=== PATIENT | female | born 1955 | race Caucasian/White ===

== ENCOUNTER 2018-07-22 12:56 | Inpatient (IN) ==
[2018-07-22] MEDS ORDERED: NS 2,000 ML ONE (13:51)
[2018-07-22] MEDS ORDERED: NS 1,000 ML IV ONE ×2 (13:55→16:54)
[2018-07-22 14:21] LABS: BASO# 0.02 X1000 (0.0-0.2); BASO% 0.2 % (0.0-0.8); EOS# 0.23 X1000 (0.0-0.7); EOS% 2.7 % (0.0-10.0); HEMOGLOBIN 8.9 g/dL (12.0-16.0); LYMPH% 26.3 % (20.5-51.1); MCH 26.7 PG (27-31); MCHC 30.7 g/dL (33-37); MCV 87.1 FL (81-99); MONO# 0.41 X1000 (0.11-0.59); MONO% 4.9 % (1.7-9.3); MPV 10.3 FL (7.4-10.4); NEUT# 5.52 X1000 (1.4-6.5); NEUT% 65.9 % (42.2-75.2); PLT 272 X1000 (130-400); RBC 3.33 XMIL (4.2-5.4); RDW 17.6 % (11.5-14.5); WBC 8.38 X1000 (4.8-10.8)
[2018-07-22 14:32] LABS: INR 0.97; PROTIME 13.6 Seconds (11.0-16.0)
[2018-07-22 14:33] LABS: PTT 37.2 Seconds (22.3-41.8)
[2018-07-22 14:49] LABS: AGAP 15; ALB/GLOB RATIO 1.2; ALBUMIN 3.3 g/dL (3.5-5.0); ALKALINE PHOSPHATASE 109 U/L (32-104); BUN 44 mg/dL (8-22); CALCIUM 8.6 mg/dL (8.8-10.2); CHLORIDE 99 mmol/L (98-107); CK PROFILE 1709 U/L (24-173); COSMO 293; CREATININE 1.6 mg/dL (0.5-0.9); ESTIMATED GFR 33; GLUCOSE 145 mg/dL (70-104); GOT 48 U/L (10-30); GPT 36 U/L (10-36); LIPASE 17 U/L (13-60); POTASSIUM 4.7 mmol/L (3.5-5.1); SODIUM 140 mmol/L (136-145); TCO2 26 mmol/L (25-35); TOTAL BILIRUBIN < 0.15 mg/dL (0.20-1.00)
[2018-07-22 15:08] LABS: CK INDEX 6.6 (0.0-2.5)
--- NOTE | 2018-07-22 15:31 | Diag Imaging Result Doc PS360 ---
EXAM : CT HEAD/C-SPINE W/O CONTRAST HISTORY: fall TECHNIQUE: 1. CT head without contrast 2. CT cervical spine without contrast COMPARISON: None. FINDINGS: Head: No parenchymal hemorrhage. No epidural or subdural hematoma. No subarachnoid hemorrhage. No mass identified on this noncontrasted exam. No hydrocephalus. There is mucosal thickening and debris in the left maxillary sinus. No air-fluid levels. No skull fracture.. Cervical spine: There is good alignment to the cervical spine. No precervical soft tissue swelling. No subluxation. No fracture. Moderate degenerative changes in the lower cervical spine. Prominent atherosclerosis. IMPRESSION: Head: No hemorrhage. No injury. Cervical spine: No acute fracture. This exam was performed using automated exposure control, adjustment of mA or kV according to patient size, and/or use of iterative reconstruction technique. Electronically signed by Vick Mora 07/22/2018 3:29 PM
--- NOTE | 2018-07-22 15:36 | Diag Imaging Result Doc PS360 ---
EXAM: CT ABDOMEN/PELVIS W/O CONTRAST HISTORY: abd tenderness TECHNIQUE: CT abdomen and pelvis without contrast COMPARISON: None. FINDINGS: There is a moderate to large hiatal hernia. The gallbladder has been removed. No fluid about the liver or spleen. Unable to rule out hepatic and splenic injury without intravenous contrast. There are scattered renal cysts. No renal stones. No hydronephrosis. No retroperitoneal hematoma. Severe atherosclerosis. Normal pancreas and adrenal glands. Moderate scoliosis with severe degenerative changes. The urinary bladder is low lying. It is quite distended. The uterus has been removed. No pelvic mass. Long-standing bilateral hip arthritis. IMPRESSION: 1.Hiatal hernia 2.Cholecystectomy 3.Severe atherosclerosis 4.Moderate constipation 5.Borderline overly distended urinary bladder 6.Hysterectomy This exam was performed using automated exposure control, adjustment of mA or kV according to patient size, and/or use of iterative reconstruction technique. Electronically signed by Vick Mora 07/22/2018 3:34 PM
--- NOTE | 2018-07-22 15:37 | Diag Imaging Result Doc PS360 ---
EXAM: CHEST-1 VIEW HISTORY: fall TECHNIQUE: Chest single view COMPARISON: 12/25/2017 FINDINGS: The lungs are well expanded. No contusion. No pneumothorax. The heart is not enlarged. The vessels are not distended. There are no infiltrates. No effusion identified. IMPRESSION: No injury. Electronically signed by Vick Mora 07/22/2018 3:35 PM
[2018-07-22 16:04] LABS: URINE SOURCE CATH
[2018-07-22 16:07] LABS: BILIRUBIN URINE NEGATIVE (NEGATIVE); BLOOD URINE NEGATIVE (NEGATIVE); COLOR YELLOW; GLUCOSE URINE NEGATIVE (NEGATIVE); KETONE URINE NEGATIVE (NEGATIVE); LEUKOCYTES URINE NEGATIVE (NEGATIVE); NITRITE URINE NEGATIVE (NEGATIVE); PH URINE 5.5; PROTEIN URINE NEGATIVE (NEGATIVE); SP GRAVITY URINE 1.008; TURBIDITY URINE CLEAR (CLEAR); UROBILINOGEN URINE NORMAL (NORMAL)
[2018-07-22 16:09] LABS: UR EPITHELIAL CELLS <10 /HPF (<10); URINE BACTERIA NEGATIVE /HPF; URINE RBC <10 /HPF (<10); URINE WBC <10 /HPF (<10)
[2018-07-22 16:24] LABS: UR AMPHETAMINES QUAL NONE DETECTED (NONE DETECT); UR BARBITUATES QUAL NONE DETECTED (NONE DETECT); UR BENZODIAZEPIN QUAL PRESUMPTIVE POSITIVE (NONE DETECT); UR CANNABINOIDS QUAL NONE DETECTED (NONE DETECT); UR COCAINE QUAL NONE DETECTED (NONE DETECT); UR METHADONE QUAL NONE DETECTED (NONE DETECT); UR OPIATES QUAL PRESUMPTIVE POSITIVE (NONE DETECT); UR OXYCODONE QUAL PRESUMPTIVE POSITIVE (NONE DETECT); UR PCP QUAL NONE DETECTED (NONE DETECT)
[2018-07-22] MEDS ORDERED: PERCOCET-10 PO ONE (17:02)
[2018-07-22] MEDS ORDERED: XYLOCAINE 1% INJ ONE (18:03)
[2018-07-22] MEDS ORDERED: SODIUM CHLORIDE 0.9% INJ SCH (18:15)
[2018-07-22 18:27] LABS: ALLEN TEST YES; BE 3.6 mmoll (-3.0-3.0); BLOOD TYPE ARTERIAL; HCO3-(ACT) 27.6 mmoll (20.0-26.0); METHB 1.3 % (0.0-1.5); PO2(98.6) 50 mmHg (60-100); SAMPLE BLOOD; SAO2 90.7 % (95.0-100.0); THB 8.2 g/dL (11.5-17.4); pH(98.6) 7.37 (7.35-7.45)
[2018-07-22 18:30] LABS: MODALITY ROOM AIR; O2HB 86.1 % (95.0-99.0); PCO2(98.6) 51 mmHg (35-45)
[2018-07-22 18:35] LABS: UR CREAT RANDOM 62.2 mg/dL (11-20); UR PROT RANDOM 9.7 mg/dL
[2018-07-22] MEDS ORDERED: DIPHTHERIA/TETANUS ADULT IM ONE (19:54)
--- NOTE | 2018-07-22 19:57 | PROVIDER DOCUMENTATION ---
This chart was entered by Hanh Barba Scribe, acting as scribe for Oswaldo Donis MD. HPI-Musculoskeletal Pain/Inj - GENERAL Chief Complaint: Fall Stated Complaint: L-LEG INJURY Time Seen by Provider: 07/22/18 13:30 Source: patient, family - HX OF PRESENT ILLNESS-MUSKULOSKELTAL Nature of Presenting Problem: 63yof with hx of IV drug, diabetes use presents post-syncopal episodes and fall that occurred last night and this morning. The patient presents c/o dizziness, nausea, "pain all over," neck pain and laceration of LLE since this morning. She reports she is unsure is she hit her head. She reports that she has been sick for the past 3-4 days with nausea, vomiting, and cough. She reports she has taken one norco 10. She denies cp, abdominal pain, diarrhea. The patient's husb and is at bedside. Quality of Pain: reports: other ("pain all over") Severity in ED: moderate Onset/Duration: 3 days ago, 4 days ago, this morning, last night Timing: still present, intermittent, constant Modifying Factors: improves with: nothing Similar Symptoms Previously?: No Recently seen or treated by another doctor?: No - FALL INJURY Location of Pain/Injury: reports: neck, lower extremity (laceration of LLE) Pain Radiation: reports: other ("pain all over") Reason for Fall: reports: other (syncopal episodes) Symptoms prior to fall:: reports: none Loss of Consciousness: unsure Injury Associated Symptoms: reports: nausea, vomiting Review of Systems - Adult - REVIEW OF SYSTEMS - ADULT Constitutional: denies: chills, fever Eyes: denies: discharge, dry eyes Ears, Nose, Mouth & Throat: denies: ear discharge, ear pain Cardiovascular: denies: chest pain, palpitations Respiratory: reports: cough. denies: shortness of breath Gastrointestinal: reports: nausea, vomiting. denies: abdominal pain, diarrhea Genitourinary: denies: dysuria, hematuria Musculoskeletal: reports: neck pain, other (laceration of LLE). denies: back pain, muscle aches, muscle weakness Integumentary: reports: no symptoms reported Neurological: reports: dizziness/vertigo, other (dizziness, nausea, "pain all over," neck pain and). denies: headache/migraines Psychiatric: reports: no symptoms reported Endocrine: reports: no symptoms reported Hematologic/Lymphatic: reports: no symptoms reported Allergic/Immunologic: reports: no symptoms reported All Other Systems: Reviewed and Negative Past History - Adult - PAST MEDICAL HISTORY-ADULT Review of Records: reports: Old Records Reviewed, Nursing Assessment Review, Medications Reviewed Major Childhood Illnesses: reports: denies history Cardiovascular: reports: HTN Respiratory: reports: asthma, COPD Musculoskeletal: reports: chronic pain (back) Endocrine/Immune: reports: thyroid disorder - PRIOR SURGERIES/PROCEDURES Surgical/Procedure History: reports: appendectomy, cholecystectomy, hysterectomy - IMMUNIZATION STATUS Childhood Immunizations: See Nurse Assessment Flu Vaccine: See Nurse Assessment - FAMILY HISTORY Family History: reviewed, not pertinent - SOCIAL HISTORY Smoking: cigarettes, less than 1 pack/day Substance Use: denies Living Situation: family Physical Exam-Injury Related - Physical Exam-Injury Related Initial Vital Signs Reviewed: Yes General Appearance: other (pt is somnolent, pt answers some questions when asked, pt is mainly non-verbal) Immobilization?: C-collar, applied in ED. negative: backboard Eyes: PERRL/EOMI, pink conjunctivae Neck: other (unable to assess, pt c/o neck pain). negative: ecchymosis Respiratory: lungs clear, normal breath sounds. negative: rales, wheezing Cardiovascular: regular rate, rhythm, no murmur. negative: bradycardia Extremity: erythema, tenderness (LLE), other (LLE v-shaped laceration 4 in x 1 in). negative: deformity Integumentary: normal color, warm/dry, laceration (LLE v-shaped laceration 4 in x 1 in) Neurologic: other (unable to assess pt is somnolent, pt answers some questions when asked, pt is mainly non-verbal) Psych/Mental Status: other (unable to assess pt is somnolent, pt answers some questions when asked, pt is mainly non-verbal) - Glascow Coma Score Best Eye Response ([place]): (3) open to voice Best Verbal Response ([place]): (4) confused conversation Best Motor Response ([place]): (5) localizes to pain [place] Total: 12 Progress - PLAN OF CARE/RESULTS Progress/Plan/Lab Results: Vital Signs - 8 hr 07/22/18 13:03 Temperature 97.4 F L Pulse Rate 102 H Respiratory Rate 18 Blood Pressure 70/52 O2 Sat by Pulse Oximetry 100 07/22/18 17:10 Influenza Screen - Final Nasopharyngeal Laboratory Results - last 24 hr 07/22/18 07/22/18 07/22/18 13:37 13:37 13:37 WBC RBC Hgb Hct MCV MCH MCHC RDW Std Deviation Plt Count MPV Immature Gran % (Auto) Neut % (Auto) Lymph % (Auto) [place] % (Auto) Eos % (Auto) Baso % (Auto) Immature Gran # (Auto) Neut # (Auto) Lymph # (Auto) [place] # (Auto) Eos # (Auto) Baso # (Auto) PT 13.6 INR 0.97 PTT (Actin FS) 37.2 Specimen Type Sample Site pH pCO2 pO2 HCO3 Base Excess Oxyhemoglobin ABG O2 Sat (Calculated) ABG O2 Saturation ABG Carboxyhemoglobin ABG Methemoglobin Raad Test A-a O2 Difference Total Hemoglobin Lactate Blood Gas Modality FiO2 % Sodium 140 Potassium 4.7 Chloride 99 Carbon Dioxide 26 Anion Gap 15 BUN 44 H Creatinine 1.6 H Estimated GFR/1.73 m2 33 BUN/Creatinine Ratio 28 Glucose 145 H Calculated Osmolality 293 Calcium 8.6 L Total Bilirubin < 0.15 L AST 48 H ALT 36 Alkaline Phosphatase 109 H Creatine Kinase 1709 H Creatine Kinase Index 6.6 H CK-MB (CK-2) 113.00 H Troponin T [id number]-Aqejppwormy Pept 581 H Total Protein 6.0 L Albumin 3.3 L Globulin 2.7 Albumin/Globulin Ratio 1.2 Lipase 17 TSH Urine Source Urine Color Urine Turbidity Urine pH Ur Specific [place] Urine Protein Ur Glucose (Stick) Ur Ketones (Stick) Urine Blood Urine Nitrite Urine Bilirubin Urobilinogen Dipstick Urine Leukocytes Urine WBC (Auto) Urine RBC (Auto) U Epithel Cells (Auto) Urine Bacteria (Auto) Ur Eosinophil Smear Urine Osmolality Ur Random Creatinine U Random Total Protein Ur Random Sodium Urine Opiates Screen Ur Oxycodone Screen Ur Methadone, Qual Ur Barbiturates Screen Ur Phencyclidine Scrn Ur Amphetamines Screen U Benzodiazepines Scrn Urine Cocaine Screen U Cannabinoids Screen 07/22/18 07/22/18 07/22/18 13:37 13:37 13:37 WBC 8.38 RBC 3.33 L Hgb 8.9 L Hct 29.0 L MCV 87.1 MCH 26.7 L MCHC 30.7 L RDW Std Deviation 17.6 H Plt Count 272 MPV 10.3 Immature Gran % (Auto) 0.0 Neut % (Auto) 65.9 Lymph % (Auto) 26.3 [place] % (Auto) 4.9 Eos % (Auto) 2.7 Baso % (Auto) 0.2 Immature Gran # (Auto) 0.00 Neut # (Auto) 5.52 Lymph # (Auto) 2.20 [place] # (Auto) 0.41 Eos # (Auto) 0.23 Baso # (Auto) 0.02 PT INR PTT (Actin FS) Specimen Type Sample Site pH pCO2 pO2 HCO3 Base Excess Oxyhemoglobin ABG O2 Sat (Calculated) ABG O2 Saturation ABG Carboxyhemoglobin ABG Methemoglobin Raad Test A-a O2 Difference Total Hemoglobin Lactate Blood Gas Modality FiO2 % Sodium Potassium Chloride Carbon Dioxide Anion Gap BUN Creatinine Estimated GFR/1.73 m2 BUN/Creatinine Ratio Glucose Calculated Osmolality Calcium Total Bilirubin AST ALT Alkaline Phosphatase Creatine Kinase Creatine Kinase Index CK-MB (CK-2) Troponin T < 0.010 [id number]-Gvrjsbnhpdy Pept Total Protein Albumin Globulin Albumin/Globulin Ratio Lipase TSH 0.08 L Urine Source Urine Color Urine Turbidity Urine pH Ur Specific [place] Urine Protein Ur Glucose (Stick) Ur Ketones (Stick) Urine Blood Urine Nitrite Urine Bilirubin Urobilinogen Dipstick Urine Leukocytes Urine WBC (Auto) Urine RBC (Auto) U Epithel Cells (Auto) Urine Bacteria (Auto) Ur Eosinophil Smear Urine Osmolality Ur Random Creatinine U Random Total Protein Ur Random Sodium Urine Opiates Screen Ur Oxycodone Screen Ur Methadone, Qual Ur Barbiturates Screen Ur Phencyclidine Scrn Ur Amphetamines Screen U Benzodiazepines Scrn Urine Cocaine Screen U Cannabinoids Screen 07/22/18 07/22/18 07/22/18 15:45 15:45 15:45 WBC RBC Hgb Hct MCV MCH MCHC RDW Std Deviation Plt Count MPV Immature Gran % (Auto) Neut % (Auto) Lymph % (Auto) [place] % (Auto) Eos % (Auto) Baso % (Auto) Immature Gran # (Auto) Neut # (Auto) Lymph # (Auto) [place] # (Auto) Eos # (Auto) Baso # (Auto) PT INR PTT (Actin FS) Specimen Type Sample Site pH pCO2 pO2 HCO3 Base Excess Oxyhemoglobin ABG O2 Sat (Calculated) ABG O2 Saturation ABG Carboxyhemoglobin ABG Methemoglobin Raad Test A-a O2 Difference Total Hemoglobin Lactate Blood Gas Modality FiO2 % Sodium Potassium Chloride Carbon Dioxide Anion Gap BUN Creatinine Estimated GFR/1.73 m2 BUN/Creatinine Ratio Glucose Calculated Osmolality Calcium Total Bilirubin AST ALT Alkaline Phosphatase Creatine Kinase Creatine Kinase Index CK-MB (CK-2) Troponin T [id number]-Taxkwjbvakw Pept Total Protein Albumin Globulin Albumin/Globulin Ratio Lipase TSH Urine Source CATH Urine Color YELLOW Urine Turbidity CLEAR Urine pH 5.5 Ur Specific [place] 1.008 Urine Protein NEGATIVE Ur Glucose (Stick) NEGATIVE Ur Ketones (Stick) NEGATIVE Urine Blood NEGATIVE Urine Nitrite NEGATIVE Urine Bilirubin NEGATIVE Urobilinogen Dipstick NORMAL Urine Leukocytes NEGATIVE Urine WBC (Auto) <10 Urine RBC (Auto) <10 U Epithel Cells (Auto) <10 Urine Bacteria (Auto) NEGATIVE Ur Eosinophil Smear Urine Osmolality 286 L Ur Random Creatinine U Random Total Protein Ur Random Sodium Urine Opiates Screen PRESUMPTIVE POSITIVE A Ur Oxycodone Screen PRESUMPTIVE POSITIVE A Ur Methadone, Qual NONE DETECTED Ur Barbiturates Screen NONE DETECTED Ur Phencyclidine Scrn NONE DETECTED Ur Amphetamines Screen NONE DETECTED U Benzodiazepines Scrn PRESUMPTIVE POSITIVE A Urine Cocaine Screen NONE DETECTED U Cannabinoids Screen NONE DETECTED 07/22/18 07/22/18 07/22/18 15:45 15:45 18:15 WBC RBC Hgb Hct MCV MCH MCHC RDW Std Deviation Plt Count MPV Immature Gran % (Auto) Neut % (Auto) Lymph % (Auto) [place] % (Auto) Eos % (Auto) Baso % (Auto) Immature Gran # (Auto) Neut # (Auto) Lymph # (Auto) [place] # (Auto) Eos # (Auto) Baso # (Auto) PT INR PTT (Actin FS) Specimen Type ARTERIAL Sample Site L RADIAL pH 7.37 pCO2 51 H* pO2 50 L HCO3 27.6 H Base Excess 3.6 H Oxyhemoglobin 86.1 L* ABG O2 Sat (Calculated) 10.0 L ABG O2 Saturation 90.7 L ABG Carboxyhemoglobin 3.80 H ABG Methemoglobin 1.3 Raad Test YES A-a O2 Difference 36.0 Total Hemoglobin 8.2 L Lactate 0.60 Blood Gas Modality ROOM AIR FiO2 % 21.0 Sodium Potassium Chloride Carbon Dioxide Anion Gap BUN Creatinine Estimated GFR/1.73 m2 BUN/Creatinine Ratio Glucose Calculated Osmolality Calcium Total Bilirubin AST ALT Alkaline Phosphatase Creatine Kinase Creatine Kinase Index CK-MB (CK-2) Troponin T Wsu-B-Kbuptsuxpht Pept Total Protein Albumin Globulin Albumin/Globulin Ratio Lipase TSH Urine Source Urine Color Urine Turbidity Urine pH Ur Specific [place] Urine Protein Ur Glucose (Stick) Ur Ketones (Stick) Urine Blood Urine Nitrite Urine Bilirubin Urobilinogen Dipstick Urine Leukocytes Urine WBC (Auto) Urine RBC (Auto) U Epithel Cells (Auto) Urine Bacteria (Auto) Ur Eosinophil Smear NONE SEEN Urine Osmolality Ur Random Creatinine 62.2 H U Random Total Protein 9.7 Ur Random Sodium 27 Urine Opiates Screen Ur Oxycodone Screen Ur Methadone, Qual Ur Barbiturates Screen Ur Phencyclidine Scrn Ur Amphetamines Screen U Benzodiazepines Scrn Urine Cocaine Screen U Cannabinoids Screen Orders Category Date Time Status Admit Patient To Inpatient Status Routine AdmDCTranf 07/22/18 18:16 Active Daily Weights 0500 Care 07/22/18 18:15 Active Intake and Output As Ordered Q 8-HR ASSESS Care 07/22/18 18:11 Active Laceration Set up DIRECTED Care 07/22/18 18:03 Active Nursing- Obtain EKG ONCE Care 07/22/18 13:55 Active Vital Signs Order Q1H Care 07/22/18 18:10 Active Z-Document. for Tele Applied ORDERED Care 07/22/18 18:12 Active CHEST-1 VIEW [RAD] Stat Exams 07/22/18 13:[address] ABDOMEN/PELVIS W/O CONTRAST [CT] Stat Exams 07/22/18 13:[address] HEAD/C-SPINE W/O CONTRAST [CT] Stat Exams 07/22/18 13:53 Completed ABG [RESP] Routine Lab 07/22/18 18:15 Completed BLOOD CULTURE [BLDCUL] Stat Lab 07/22/18 17:20 Results CBC WITH DIFF [HEME] Lab 07/23/18 06:00 Uncollected CBC WITH DIFF [HEME] Lab 07/24/18 06:00 Uncollected CBC WITH ELECTRONIC DIFF [HEME] Stat Lab 07/22/18 13:37 Completed CK PROFILE [SP CHEM] Stat Lab 07/22/18 13:37 Completed CK PROFILE [SP CHEM] Stat Lab 07/22/18 18:13 Ordered CK TOTAL [CHEM] Routine Lab 07/23/18 06:00 Ordered COMPREHENSIVE METABOLIC PANEL [CHEM] Stat Lab 07/22/18 13:37 Completed Cardiac Profile [CK PROFILE] [SP CHEM] Routine Lab 07/23/18 06:00 Ordered EOS URINE SMEAR [HEME] Routine Lab 07/22/18 15:45 Completed INFLUENZA SCREEN A/B Stat Lab 07/22/18 17:10 Completed LIPASE [CHEM] Stat Lab 07/22/18 13:37 Completed Liver Function Panel [HEPATIC FUNCTION] [CHEM] Routine Lab 07/23/18 06:00 Ordered PRO B-NATRIURETIC PEPTIDE Stat Lab 07/22/18 13:37 Completed PROTIME WITH INR [COAG] Stat Lab 07/22/18 13:37 Completed PTT [COAG] Stat Lab 07/22/18 13:37 Completed RENAL PROFILE [CHEM] DAILY Lab 07/23/18 06:00 Ordered RENAL PROFILE [CHEM] DAILY Lab 07/24/18 06:00 Ordered RENAL PROFILE [CHEM] DAILY Lab 07/25/18 06:00 Ordered RENAL PROFILE [CHEM] DAILY Lab 07/26/18 06:00 Ordered TROPONIN T Routine Lab 07/23/18 06:00 Ordered TROPONIN T Stat Lab 07/22/18 13:37 Completed TROPONIN T Stat Lab 07/22/18 18:13 Ordered TSH Routine Lab 07/22/18 13:37 Completed UR CREAT RANDOM [URCHEM] Routine Lab 07/22/18 15:45 Completed UR OSMOLALITY [CHEM] Routine Lab 07/22/18 15:45 Completed UR PROT RANDOM [URCHEM] Routine Lab 07/22/18 15:45 Completed UR SODIUM [URCHEM] Routine Lab 07/22/18 15:45 Completed URINALYSIS [URINALYSIS] Stat Lab 07/22/18 15:45 Completed URINE DRUG SCREEN Stat Lab 07/22/18 15:45 Completed 0.9% Sodium Chloride Inj [Ns] 1,000 ml Med 07/22/18 13:51 Discontinued .ROUTE As directed 0.9% Sodium Chloride Inj [Ns] 1,000 ml Med 07/22/18 18:15 Active IV 125 mls/hr 0.9% Sodium Chloride Inj [Ns] 1,000 ml Med 07/22/18 13:55 Discontinued IV 999 mls/hr 0.9% Sodium Chloride Inj [Ns] 1,000 ml Med 07/22/18 16:54 Discontinued IV 999 mls/hr Heparin Med 07/22/18 21:00 Active 5,000 unit SUBQ Q12HR Hydromorphone [Dilaudid] Med 07/22/18 18:15 Active 1 mg IV Q4H PRN PRN Lidocaine 1% [Xylocaine 1%] Med 07/22/18 18:03 Discontinued 50 ml INJ NOW ONE Linezolid 600 mg/D5w [Zyvox 600 mg/D5w] Med 07/22/18 18:30 Active 600 mg in 300 ml IV Q12H Oxycodone/APAP 10 mg/325 mg [Percocet-10] Med 07/22/18 17:02 Discontinued 1 each PO NOW ONE Pantoprazole [Protonix] Med 07/23/18 07:00 Active 40 mg IV Q24H Piperacillin/Tazobactam [Zosyn] 2.25 gm Med 07/22/18 18:30 Active 0.9% Sodium Chloride Inj [Ns] 50 ml IV Q8H Sodium Chloride 0.9% Med 07/22/18 18:15 Active 10 ml INJ DIRECTED Telemetry [OM.EQ] Routine Oth 07/22/18 18:11 Active EKG [EKG] Routine Ther 07/23/18 08:00 Ordered Echo Spec/Color Dop W/O Contra Routine Ther 07/23/18 08:00 Ordered Transfer/Admit Order [TRANSFER] Routine Transfer 07/22/18 18:17 Ordered Result Diagrams: 07/22/18 13:37 07/22/18 13:37 - EKG 1 Time of EKG reading by physician:: 13:30 EKG Read and Signed by:: Oswaldo Donis EKG Interpretation (*Must complete 3 of following elements*): Normal Rate: 73 Rhythm: Normal sinus rhythm [place]: normal ST Wave: non-specific ST changes - XRAY 1 XRAY Study: Chest Impression: Normal (FINDINGS: The lungs are well expanded. No contusion. No pneumothorax. The heart is not enlarged. The vessels are not distended. There are no infiltrates. No effusion identified. IMPRESSION: No injury.) - CT/MRI 1 CT Study: Cervical Spine, Head Impression: Abnormal (FINDINGS: Head: No parenchymal hemorrhage. No epidural or subdural hematoma. No subarachnoid hemorrhage. No mass identified on this noncontrasted exam. No hydrocephalus. There is mucosal thickening and debris in the left maxillary sinus. No air-fluid levels. No skull fracture.. Cervical spine: There is good alignment to the cervical spine. No precervical soft tissue swelling. No subluxation. No fracture. Moderate degenerative changes in the lower cervical spine. Prominent atherosclerosis. IMPRESSION: Head: No hemorrhage. No injury. Cervical spine: No acute fracture. This exam was performed using automated exposure control, adjustment of mA or kV according to patient size, and/or use of iterative reconstruction technique. Electronically signed by Vick Mora 07/22/2018 3:29 PM) 2 CT Study: Abdomen, Pelvis Impression: Abnormal (FINDINGS: There is a moderate to large hiatal hernia. The gallbladder has been removed. No fluid about the liver or spleen. Unable to rule out hepatic and splenic injury without intravenous contrast. There are scattered renal cysts. No renal stones. No hydronephrosis. No retroperitoneal hematoma. Severe atherosclerosis. Normal pancreas and adrenal glands. Moderate scoliosis with severe degenerative changes. The urinary bladder is low lying. It is quite distended. The uterus has been removed. No pelvic mass. Long- standing bilateral hip arthritis. IMPRESSION: 1.Hiatal hernia 2. Cholecystectomy 3.Severe atherosclerosis 4.Moderate constipation 5.Borderline overly distended urinary bladder 6.Hysterectomy This exam was performed using automated exposure control, adjustment of mA or kV according to patient size, and/or use of iterative reconstruction technique. Electronically signed by Vick Mora 07/22/2018 3:34 PM) Procedures - LACERATION/WOUND REPAIR/FB Left Lower Calf Wound Location: Other: L lower leg Wound Length: 8 Wound's Depth, Shape: irregular, flap, contused tissue Wound Explored/Foreign Body: contaminated moderately Irrigated with Saline?: Yes Anesthetic: 1% Volume of Anesthetic (ml's): 20 Wound Debrided: minimal Wound Repaired with: Sutures Suture Size/Type: 4.0, Nylon Number of Sutures: 16 Layer Closure?: No Sterile Dressing Applied?: Yes Splint Applied?: No Post Procedure Neurovascular Exam: Intact Departure - Departure Date of Disposition Decision: 07/22/18 Time of Disposition Decision: 16:58 DIAGNOSIS: Rhabdomyolysis, Fall, Laceration, Hypotension Disposition: ADMITTED INPATIENT 09 Certified Medical Emergency: Emergent Condition: Stable - Critical Care Note This patient required my direct & personal management of CC.: No Attestation - Physician/ BIENVENIDO Attestation Patient care was provided by Advanced Practice Provider:: No The physician spent face to face time with patient:: Yes Advanced Practice Provider documentation review:: Supervising physician onsite and consulted in the evaluation and care of this patient. The physician did have a face to face encounter with the patient. This chart was documented by the indicated scribe, (Hanh Barba, [place]) and accurately reflects the services I performed and decisions made by me, Oswaldo Donis MD, as attested by the provider's signature.
[2018-07-22] MEDS: DILAUDID IV PRN (20:15)
[2018-07-22] MEDS: ZOSYN 2.25 GM in NS 50 ML IV SCH (20:15)
[2018-07-22] MEDS ORDERED: LEVOPHED 8 MG in D5 1/2 NS 250 ML IV SCH (20:15)
--- NOTE | 2018-07-22 20:34 | Diag Imaging Result Doc PS360 ---
EXAM: CT THORAX W/O CONTRAST HISTORY: pneumonia/hypoxia TECHNIQUE: CT chest without contrast COMPARISON: None. FINDINGS: Severe scoliosis. No cardiomegaly. No pleural effusions. No thoracic aortic aneurysm. Moderate atherosclerosis. There are large calcified mediastinal and hilar lymph nodes. 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 Mild emphysematous changes. Small patchy infiltrates or atelectasis in the lung bases. No consolidation. No bronchiectasis. IMPRESSION: Small basilar infiltrates or atelectasis. This exam was performed using automated exposure control, adjustment of mA or kV according to patient size, and/or use of iterative reconstruction technique. Electronically signed by Vick Mora 07/22/2018 8:31 PM
[2018-07-22 20:50] LABS: CK INDEX 5.6 (0.0-2.5); CK-MB 99.07 ng/mL (0.0-5.0)
[2018-07-22] MEDS: HEPARIN SUBQ SCH (21:00)
[2018-07-22] MEDS: COLACE PO SCH (21:00)
--- NOTE | 2018-07-22 21:10 | HISTORY AND PHYSICAL ---
The patient's primary care physician is Dr. Esau Garcia. CHIEF COMPLAINT: I passed out yesterday and then again this morning and I cut my leg. HISTORY OF PRESENT ILLNESS: Ms Miner is a 63-year-old female with a history of chronic back pain, hypertension, COPD, tobacco dependence, and anxiety disorder who presented to the ER today with a chief complaint of 2 syncopal episodes. The patient reports that for the last 3 days she has been feeling bad. She reports a poor appetite, nausea with vomiting but no diarrhea. She states that yesterday evening she passed out and felt dizzy throughout the day. Then again this morning she had another syncopal episode at which time when she fell she suffered a severe laceration on her left calf. After the 2nd syncopal episode, she decided to come to the ER for further treatment and evaluation. Upon arrival the patient stated that she was not having chest pain and was not feeling nauseated but was having some abdominal pain and generalized weakness. She also reports that she has not been eating or drinking very much in the last several days. She does smoke a pack of cigarettes every day and she states that she has been taking her scheduled medications. In the ER the patient was noted to be hypotensive with a blood pressure of 70/52 and a heart rate of 102. A CT of the head and C-spine was done that revealed no evidence of hemorrhage or injury and no acute fracture. Also a CT of the abdomen and pelvis was done that revealed moderate constipation and distended urinary bladder. The patient received 2 L of normal saline and the wound on her left calf was sutured by the ER physician. PAST MEDICAL HISTORY: 1. Peripheral arterial disease. 2. Opioid induced constipation. 3. Anxiety disorder. 4. GERD. 5. Hypertension. 6. COPD. 7. Tobacco dependence. 8. Chronic back pain. 9. Chronic neck pain. 10. Hypothyroidism. PAST SURGICAL HISTORY: 1. Appendectomy. 2. Cholecystectomy. 3. Hysterectomy. FAMILY HISTORY: Noncontributory due to age. SOCIAL HISTORY: The patient lives at home with her . She smokes 1 pack of cigarettes a day. She denies any alcohol or illicit drug use. ALLERGIES: Levaquin and methadone. HOME MEDICATIONS: The complete list is unavailable at this time. REVIEW OF SYSTEMS: A 12-point review of systems has been performed, please refer to the history of present illness for pertinent positives and negatives. PHYSICAL EXAMINATION: VITAL SIGNS: Temperature 97.4 degrees, blood pressure 70/52, heart rate 102, respirations 18, O2 saturation is 100% on room air. GENERAL: This is a thin, emaciated elderly female lying in bed in no acute distress. SKIN: The patient has a large laceration involving the left calf where there is subcutaneous tissue and fat exposed. HEENT: Head normocephalic, atraumatic. Conjunctiva clear, EOMI, MARCELINO. NECK: Supple. No JVD. No lymphadenopathy. No carotid bruit. HEART: S1, S2 normal. Tachycardic. LUNGS: Equal air entry bilaterally. No wheezing. No rales. No rhonchi. ABDOMEN: Positive bowel sounds. Soft, nontender, nondistended. EXTREMITIES: No edema, no cyanosis. The patient's toes are erythematous. There is a 4 cm laceration on the left calf. NEURO: The patient is alert and oriented x4. No focal neurologic deficits noted. Cranial nerves 2 through 12 intact. LABS: White blood cell count 8.3, hemoglobin 8.9, hematocrit 29, platelets 272,000, INR 0.9. ABG pH 7.37, pCO2 51, PO2 50, bicarb 27, sodium 140, potassium 4.7, chloride 99, CO2 26. BUN 44, creatinine 1.6, glucose 145, calcium 8.6, AST 48, ALT 36, alkaline phosphatase 109. CK 1765, troponin less than 0.01, proBNP 581, albumin 3.3, lipase 17. TSH 0.08. UA negative. CT of the head and cervical spine shows no acute injury. CT of the abdomen and pelvis shows severe atherosclerosis. Moderate constipation. Borderline overly distended urinary bladder. ASSESSMENT AND PLAN: 1. Sepsis. The patient is severely hypotensive. Will continue with IV fluid hydration. The patient may require pressor support. Blood cultures have been obtained. Will start broad spectrum antibiotics. 2. Pneumonia. Will order a sputum culture and initiate broad spectrum antibiotics and supplemental oxygen. 3. Syncope. This is most likely secondary to volume depletion. Will monitor the patient on telemetry. Will also obtain an echocardiogram and continue to hydrate the patient. 4. Left leg laceration. The laceration was repaired with sutures by the emergency room physician. The patient also received a tetanus shot. 5. Acute kidney injury. This is likely secondary to volume depletion as well as possible sepsis. IV fluids have been started. Will also check urine studies. 6. Rhabdomyolysis. Will continue with aggressive IV fluid hydration. We will monitor the patient's urine output closely, will repeat a CK tomorrow. 7. Chronic obstructive pulmonary disease. Will start the patient on bronchodilator therapy and supplemental oxygen. 8. Constipation. Will start the patient on laxative therapy. 9. Gastrointestinal prophylaxis. Will start the patient on IV Protonix. 10. Deep vein thrombosis prophylaxis. Will start the patient on heparin. cc: Padmini Alston MD MTDD
[2018-07-22] MEDS: NS 1,000 ML IV SCH (21:20)
[2018-07-22] MEDS: ZYVOX 600 MG/D5W 600 MG/300 ML IVPB IV SCH (21:25)
[2018-07-22] MEDS: ZOFRAN IV PRN (21:28)
[2018-07-22] MEDS: XOPENEX NEB INH SCH (22:00)
[2018-07-23] MEDS: DILAUDID IV PRN ×5 (01:17→20:32)
[2018-07-23] MEDS ORDERED: DIPHTHERIA/TETANUS ADULT ONE (02:52)
[2018-07-23 03:54] LABS: ALLEN TEST YES; BLOOD TYPE ARTERIAL; HCO3-(ACT) 28.8 mmoll (20.0-26.0); METHB 1.6 % (0.0-1.5); O2(CT) 10.3 mL/dL (15.0-23.0); O2HB 94.2 % (95.0-99.0); PO2(98.6) 73 mmHg (60-100); SAMPLE BLOOD; SAO2 98.1 % (95.0-100.0); THB 7.7 g/dL (11.5-17.4); pH(98.6) 7.36 (7.35-7.45)
[2018-07-23 03:55] LABS: MODALITY CANNULA
[2018-07-23 03:56] LABS: PCO2(98.6) 55 mmHg (35-45)
[2018-07-23] MEDS: XOPENEX NEB INH SCH ×4 (03:58→22:00)
--- NOTE | 2018-07-23 06:10 | Diag Imaging Result Doc PS360 ---
EXAM: CHEST-PORTABLE HISTORY: dyspnea/copd TECHNIQUE: Portable chest single view COMPARISON: 07/22/2018 FINDINGS: The lungs are well expanded. The heart is not enlarged. The vessels are not distended. There are increased interstitial markings in the left lung base. No effusion identified. IMPRESSION: Left lower lobe infiltrates Electronically signed by Vick Mora 07/23/2018 6:08 AM
--- NOTE | 2018-07-23 07:24 | EKG Report ---
Test Performed on : 07/23/2018 06:55:17 AM Test Reason : tachycardia Blood Pressure : / mmHG Vent. Rate : 095 BPM Atrial Rate : 095 BPM P-R Int : 140 ms QRS Dur : 082 ms QT Int : 370 ms P-R-T Axes : 058 024 041 degrees QTc Int : 464 ms Normal sinus rhythm. Normal ECG When compared with ECG of 22-JUL-2018 13:27, (Unconfirmed) No significant change was found Confirmed by Christiane BARRAGAN, Colby ([id number]) on 07/23/2018 9:08:37 AM
[2018-07-23 07:31] LABS: HEMOGLOBIN A1C 5.5 % (4.8-6.0)
[2018-07-23 07:50] LABS: ALLEN TEST NO; BE 5.5 mmoll (-3.0-3.0); BLOOD TYPE ARTERIAL; HCO3-(ACT) 29.2 mmoll (20.0-26.0); METHB 0.6 % (0.0-1.5); O2(CT) 10.7 mL/dL (15.0-23.0); O2HB 96.3 % (95.0-99.0); PO2(98.6) 78 mmHg (60-100); SAMPLE BLOOD; SAO2 98.6 % (95.0-100.0); THB 7.8 g/dL (11.5-17.4); pH(98.6) 7.38 (7.35-7.45)
[2018-07-23 07:51] LABS: PCO2(98.6) 53 mmHg (35-45)
[2018-07-23 07:52] LABS: AGAP 9; ALB/GLOB RATIO 1.2; ALBUMIN 2.8 g/dL (3.5-5.0); ALKALINE PHOSPHATASE 97 U/L (32-104); BUN 20 mg/dL (8-22); CALCIUM 7.8 mg/dL (8.8-10.2); CHLORIDE 108 mmol/L (98-107); COSMO 289; CREATININE 0.8 mg/dL (0.5-0.9); DIRECT BILIRUBIN < 0.10 mg/dL (0.00-0.20); ESTIMATED GFR > 60; GLUCOSE 98 mg/dL (70-104); GOT 41 U/L (10-30); GPT 37 U/L (10-36); POTASSIUM 4.1 mmol/L (3.5-5.1); SODIUM 144 mmol/L (136-145); TCO2 27 mmol/L (25-35); TOTAL BILIRUBIN < 0.15 mg/dL (0.20-1.00); TOTAL PROTEIN 5.2 g/dL (6.3-8.3)
[2018-07-23 07:52] LABS: MODALITY CANNULA
[2018-07-23 07:54] LABS: BASO# 0.02 X1000 (0.0-0.2); BASO% 0.3 % (0.0-0.8); EOS# 0.18 X1000 (0.0-0.7); HEMATOCRIT 25.3 % (37.0-47.0); HEMOGLOBIN 7.7 g/dL (12.0-16.0); LYMPH# 2.25 X1000 (1.2-3.4); LYMPH% 37.3 % (20.5-51.1); MCH 26.7 PG (27-31); MCHC 30.4 g/dL (33-37); MCV 87.8 FL (81-99); MONO# 0.39 X1000 (0.11-0.59); MONO% 6.5 % (1.7-9.3); MPV 10.4 FL (7.4-10.4); NEUT# 3.19 X1000 (1.4-6.5); NEUT% 52.9 % (42.2-75.2); PLT 294 X1000 (130-400); RBC 2.88 XMIL (4.2-5.4); RDW 17.6 % (11.5-14.5); WBC 6.03 X1000 (4.8-10.8)
[2018-07-23] MEDS: PROTONIX IV SCH (08:30)
[2018-07-23] MEDS: ZYVOX 600 MG/D5W 600 MG/300 ML IVPB IV SCH ×2 (08:35→20:41)
[2018-07-23 08:56] LABS: CK INDEX 3.5 (0.0-2.5); CK-MB 38.57 ng/mL (0.0-5.0)
[2018-07-23] MEDS: ZOFRAN IV PRN ×2 (10:10→17:30)
[2018-07-23 10:11] LABS: BASO# 0.02 X1000 (0.0-0.2); BASO% 0.3 % (0.0-0.8); EOS# 0.19 X1000 (0.0-0.7); EOS% 3.2 % (0.0-10.0); HEMATOCRIT 25.9 % (37.0-47.0); HEMOGLOBIN 7.6 g/dL (12.0-16.0); IMM GRAN# 0.02 X1000 (0.0-0.04); IMM GRAN% 0.3 % (0.0-0.5); LYMPH# 1.74 X1000 (1.2-3.4); LYMPH% 29.2 % (20.5-51.1); MCH 26.2 PG (27-31); MCHC 29.3 g/dL (33-37); MCV 89.3 FL (81-99); MONO# 0.41 X1000 (0.11-0.59); MONO% 6.9 % (1.7-9.3); MPV 9.7 FL (7.4-10.4); NEUT# 3.58 X1000 (1.4-6.5); NEUT% 60.1 % (42.2-75.2); PLT 281 X1000 (130-400); RDW 17.7 % (11.5-14.5); WBC 5.96 X1000 (4.8-10.8)
[2018-07-23] MEDS: NS 1,000 ML IV SCH ×2 (10:15→18:45)
[2018-07-23] MEDS: ZOSYN 2.25 GM in NS 50 ML IV SCH ×2 (10:19→18:45)
[2018-07-23] MEDS: HEPARIN SUBQ SCH ×2 (11:00→20:37)
[2018-07-23] MEDS: MIRALAX PO SCH ×2 (11:00→20:40)
[2018-07-23] MEDS: COLACE PO SCH ×2 (11:00→21:00)
--- NOTE | 2018-07-23 12:29 | EKG Report ---
Test Performed on : 07/22/2018 1:27:29 PM Test Reason : ED. NO EKG ORDER FOR MUSE Blood Pressure : / mmHG Vent. Rate : 073 BPM Atrial Rate : 073 BPM P-R Int : 150 ms QRS Dur : 088 ms QT Int : 440 ms P-R-T Axes : 048 023 024 degrees QTc Int : 484 ms Normal sinus rhythm. Normal ECG When compared with ECG of 21-FEB-2017 17:28, No significant change was found Unconfirmed Result
--- NOTE | 2018-07-23 14:53 | ECHO REPORT ---
ORDER DATE: 07/23/2018 INDICATION: Peripheral arterial disease, hypertension, reflux, COPD. FINDINGS: 1. The right atrium appears normal in size. 2. Mild tricuspid regurgitation. RV systolic pressure of 34. 3. Normal RV size and systolic function. 4. No significant pulmonic insufficiency. 5. Normal left atrial size at 3.8 cm. 6. No mitral valve prolapse. Mild mitral regurgitation. No evidence of mitral stenosis. 7. Normal LV size, end-diastolic dimension of 4.1. Normal wall thicknesses with a posterior and interventricular septal wall thickness of 1.1 cm each. Normal LV systolic function. Estimated EF of 60% to 65% with normal wall motion. 8. The aortic valve opens well. It is trileaflet. No evidence of stenosis or insufficiency. 9. The aorta appears normal in visualized segments. 10. No pericardial effusion is seen. cc: MD Padmini De Leon MD
[2018-07-23] MEDS ORDERED: PROTONIX PO SCH (15:30)
[2018-07-23] MEDS ORDERED: NICODERM PATCH TD PRN (16:07)
--- NOTE | 2018-07-23 16:33 | PROGRESS NOTE ---
DATE: 07/23/2018 SUBJECTIVE: At the moment of my physical exam this patient was sitting on the bed and crying, she is complaining of left lower extremity pain and severe back pain which is chronic but she has been falling recently and actually she fell yesterday before coming to the hospital and since then the back pain has been worse. I will order a CT scan of the lumbar spine to rule out any fracture and/or abnormality, CT abdomen showed constipation as well. I will put this patient back on her Linzess, chronically she has been taking clonazepam, gabapentin, pain medication/narcotics so I will put her back on her medications but I will decrease the dose. She came in with acute kidney injury but at this moment is completely normal, I will continue with the IV fluids. She does have rhabdomyolysis which is getting better. OBJECTIVE: Vital Signs: Temperature 97.4, pulse 82, Blood pressure 118/66, oxygen saturation 100% on 2 L of nasal cannula. HEENT: Head normocephalic. No trauma. PERRLA. Neck: Supple. No JVD. No masses. Central trachea. Chest: Crepitus at the bases, prolonged expiratory phase and decreased breath sounds globally. Abdomen: Soft. Mild tenderness to palpation at the level of the epigastric area. Back: Painful to palpation at the level of the lower back area with also painful with movement. Extremities: She does have a laceration at the level of the left leg with some stitches, no signs of bleed or infection but is painful to palpation. Neurologic: This patient is alert and oriented x3. No focal deficits. LABORATORY: WBC 5.9, hemoglobin 7.6, hematocrit 25.9, platelets 281,000, sodium 144, potassium 4.1, chloride 108, bicarbonate 27, BUN 20, creatinine 0.8, glucose 98, calcium 7.8. AST 41, ALT 37, alkaline phosphatase 97. CK 1095. Troponins negative x3. Albumin 2.8. Echocardiogram showed an ejection fraction of 60 to 65 percent with normal wall motion and normal right ventricular size and systolic function. ASSESSMENT AND PLAN: 1. Sepsis, this patient was admitted with severe hypotension, I will continue with IV fluids. She seems to be getting better. I will continue with antibiotics. It looks like she has bilateral lower lobe pneumonia. We will continue to monitor. 2. Pneumonia. Culture has been negative so far, continue with supplemental oxygen and antibiotics. 3. Syncope likely secondary to the infectious process and volume depletion/hypotension. We will monitor this patient on telemetry. Echocardiogram showed an ejection fraction of 60 to 65 percent and also right ventricular systolic function stable. 4. Acute kidney injury resolved, likely secondary to dehydration and sepsis. 5. Rhabdomyolysis. Continue with IV fluids. CK level is trending down and the kidney function got better. 6. History of chronic obstructive pulmonary disease, not in exacerbation. Continue with breathing treatment and oxygen supplementation. 7. Constipation. I have placed this patient back on her home medication Linzess. 8. Gastrointestinal prophylaxis with Protonix. 9. Deep vein thrombosis prophylaxis with heparin. 10. Anxiety. I will continue this patient on a low dose of Klonopin which she is getting at home. 11. Chronic pain syndrome, apparently she has been taking narcotics for at least 3 years. I will get a CT scan of her lumbar spine because of her severe pain and I will put this patient back on as needed medications. 12. Lower back pain, as above, pending CT scan. cc: Cyril Mcguire MD MTDD
--- NOTE | 2018-07-23 16:39 | Diag Imaging Result Doc PS360 ---
EXAM: CT LUMBAR SPINE W/O CONTRAST 07/23/2018 HISTORY: Trauma / pain TECHNIQUE: This exam was performed using automated exposure control, adjustment of mA or kV according to patient size, and/or use of iterative reconstruction technique. COMMENT: There are no previous studies available for comparison. There is rotoscoliosis of the lumbar spine with convexity to the left. There are apparent multiple renal cysts and extensive atherosclerotic disease. At the T12-L1 level there is no evidence of spinal or foraminal stenosis. At the L1-2 level there is severe degenerative disease with vacuum disc phenomenon and slight narrowing of the foramina. There is bilateral facet arthropathy. At the L2-3 level there is vacuum disc phenomenon and facet arthropathy with right-sided foraminal stenosis. At the L3-4 level there is disc bulge osteophyte formation and moderate spinal stenosis. The foramina appear to be patent bilaterally. There is severe right facet arthropathy. At the L4-5 level the disc space is relatively well preserved and there is no evidence of foraminal stenosis but there is mild to moderate spinal stenosis due to ligamentum flavum hypertrophy and disc bulge. At the L5-S1 level there is severe bilateral facet arthropathy. There is no evidence of spinal or foraminal stenosis. There is degenerative arthritis in both sacroiliac joints. IMPRESSION: No evidence of acute bony disease. Severe degenerative disc disease, scoliosis, facet arthropathy, and spinal and foraminal stenosis as described above. Electronically signed by Jeff Sethi 07/23/2018 4:37 PM
[2018-07-23] MEDS: SYNTHROID PO SCH (17:00)
[2018-07-23] MEDS: NEURONTIN PO SCH (17:00)
[2018-07-23] MEDS: KLONOPIN PO SCH ×2 (17:00→18:30)
[2018-07-23] MEDS: PERCOCET-10 PO PRN (18:30)
[2018-07-24] MEDS: PERCOCET-10 PO PRN (00:17)
[2018-07-24] MEDS: NEURONTIN PO SCH ×4 (00:19→21:54)
[2018-07-24] MEDS: DILAUDID IV PRN ×5 (02:50→21:49)
[2018-07-24] MEDS: ZOFRAN IV PRN (02:54)
[2018-07-24] MEDS: ZOSYN 2.25 GM in NS 50 ML IV SCH ×4 (02:55→21:48)
[2018-07-24 03:59] LABS: ALLEN TEST YES; BE 6.6 mmoll (-3.0-3.0); BLOOD TYPE ARTERIAL; HCO3-(ACT) 30.1 mmoll (20.0-26.0); METHB 1.2 % (0.0-1.5); O2(CT) 10.2 mL/dL (15.0-23.0); O2HB 96.2 % (95.0-99.0); PO2(98.6) 96 mmHg (60-100); SAMPLE BLOOD; SAO2 98.9 % (95.0-100.0); THB 7.4 g/dL (11.5-17.4); pH(98.6) 7.35 (7.35-7.45)
[2018-07-24 04:00] LABS: MODALITY CANNULA
[2018-07-24] MEDS: XOPENEX NEB INH SCH ×4 (04:00→23:49)
[2018-07-24 04:02] LABS: PCO2(98.6) 60 mmHg (35-45)
[2018-07-24 05:22] LABS: BASO# 0.02 X1000 (0.0-0.2); BASO% 0.3 % (0.0-0.8); EOS# 0.18 X1000 (0.0-0.7); EOS% 2.9 % (0.0-10.0); HEMATOCRIT 25.9 % (37.0-47.0); HEMOGLOBIN 7.6 g/dL (12.0-16.0); IMM GRAN# 0.02 X1000 (0.0-0.04); IMM GRAN% 0.3 % (0.0-0.5); LYMPH# 2.55 X1000 (1.2-3.4); LYMPH% 41.3 % (20.5-51.1); MCH 26.1 PG (27-31); MCHC 29.3 g/dL (33-37); MONO% 6.5 % (1.7-9.3); MPV 9.9 FL (7.4-10.4); NEUT% 48.7 % (42.2-75.2); PLT 268 X1000 (130-400); RBC 2.91 XMIL (4.2-5.4); RDW 17.8 % (11.5-14.5); WBC 6.17 X1000 (4.8-10.8)
[2018-07-24 05:35] LABS: AGAP 8; ALBUMIN 2.8 g/dL (3.5-5.0); ALKALINE PHOSPHATASE 111 U/L (32-104); BUN 9 mg/dL (8-22); CALCIUM 8.5 mg/dL (8.8-10.2); CHLORIDE 106 mmol/L (98-107); COSMO 280; CREATININE 0.7 mg/dL (0.5-0.9); ESTIMATED GFR > 60; GLUCOSE 106 mg/dL (70-104); GOT 39 U/L (10-30); GPT 40 U/L (10-36); POTASSIUM 3.6 mmol/L (3.5-5.1); SODIUM 141 mmol/L (136-145); TCO2 27 mmol/L (25-35); TOTAL BILIRUBIN 0.15 mg/dL (0.20-1.00); TOTAL PROTEIN 5.6 g/dL (6.3-8.3)
[2018-07-24 05:57] LABS: CK INDEX 1.7 (0.0-2.5); CK-MB 11.29 ng/mL (0.0-5.0)
[2018-07-24] MEDS: NS 1,000 ML IV SCH ×3 (08:25→21:47)
[2018-07-24] MEDS: PROTONIX IV SCH (08:26)
[2018-07-24] MEDS: SYNTHROID PO SCH (08:26)
[2018-07-24] MEDS: LINZESS PO SCH (08:26)
[2018-07-24] MEDS: ZYVOX 600 MG/D5W 600 MG/300 ML IVPB IV SCH (08:55)
[2018-07-24] MEDS: HEPARIN SUBQ SCH ×2 (08:56→21:53)
[2018-07-24] MEDS: COLACE PO SCH ×2 (08:56→21:53)
[2018-07-24] MEDS: KLONOPIN PO SCH (08:57)
[2018-07-24] MEDS: MIRALAX PO SCH ×3 (08:57→21:54)
--- NOTE | 2018-07-24 13:57 | PROGRESS NOTE ---
DATE: 07/24/2018 SUBJECTIVE: The patient reports feeling fine. She reports feeling more depressed and she requests her Cymbalta to be restarted. At the same time, she feels a little bit anxious and she thinks that she needs to have a nicotine patch for that. There are no other issues noted as per nursing staff overnight. OBJECTIVE: Vital Signs: Temperature 98.0 degrees, heart rate 73, respiratory rate 20, blood pressure 150/60, O2 saturation 91% on 2 L nasal cannula. General Examination: This is a chronically ill-appearing, 63-year-old, female lying in bed, in no acute distress. HEENT: Head is normocephalic and atraumatic. Neck: No JVD noted. No carotid bruits. No lymphadenopathy. No thyromegaly. Cardiovascular Examination: S1 and S2 heard. No murmurs, gallops, or rubs. Regular rate and rhythm. Respiratory Examination: Minimal crackles in both pulmonary bases. Minimal wheezing as well. Patient is not using any accessory muscles or having work of breathing. Abdomen: Soft. A little bit tender to palpation in the epigastric area. Bowel sounds present. No organomegaly. No signs of peritoneal irritation. Extremities: There is a laceration at the level of the left leg with some stitches but no signs of bleeding or infection. Painful to palpation. There is also pain to palpation at the level of the lower back. Neurological Examination: The patient is alert and oriented x3. Moves 4 extremities. Laboratory Data: White cell count 6.70, hemoglobin 7.6, hematocrit 25.9, platelets 268,000. ABG shows pH 7.35, with pCO2 60, PO2 96. Normal BMP. Creatine kinase is 661. ASSESSMENT/PLAN: 1. Septic shock secondary to bilateral pneumonia. Actually, the patient continues to be on intravenous fluids but she does not require any more vasopressors. Blood pressure actually is in the range of 130s and 140s. The patient is on Zosyn on Zyvox but because patient requests her Cymbalta to be restarted, because of interaction and possibility of serotonin syndrome, I stopped Zyvox and started Teflaro 600 mg intravenous every 12 hours. 2. Bilateral pneumonia. As we mentioned above, blood cultures are negative so far. 3. Syncope related to infectious process. Patient's blood pressure is much better. No more episodes of syncope since she is here in the hospital. 4. Acute kidney injury, resolved. 5. Rhabdomyolysis. We will continue with intravenous fluids. CK continues to be okay. 6. Chronic obstructive pulmonary disease, not in exacerbation. We will continue with breathing treatments as needed only. 7. Deep vein thrombosis prophylaxis with heparin. 8. Anxiety disorder. The patient has been restarted on Klonopin and also, she is going to be restarted on Cymbalta. 9. Tobacco abuse. Patient requests a nicotine patch to be given to this patient. 10. At this point, we will continue with the same antibiotic management. We will start physical therapy on this patient. cc: Jorge Luis Aguilar MD
[2018-07-24] MEDS: TEFLARO 600 MG in NS 250 ML IV SCH (15:14)
[2018-07-24] MEDS: CYMBALTA PO SCH (15:15)
[2018-07-24] MEDS: NICODERM PATCH TD SCH (15:15)
[2018-07-24] MEDS ORDERED: PLETAL PO SCH (21:00)
[2018-07-24] MEDS: ZANAFLEX PO SCH (21:54)
[2018-07-24] MEDS: MIRAPEX PO SCH (21:54)
[2018-07-25] MEDS: ZOSYN 2.25 GM in NS 50 ML IV SCH ×4 (02:36→22:22)
[2018-07-25] MEDS: DILAUDID IV PRN ×2 (02:40→14:07)
[2018-07-25] MEDS: XOPENEX NEB INH SCH ×4 (03:44→21:25)
[2018-07-25] MEDS: NS 1,000 ML IV SCH ×3 (06:39→17:57)
[2018-07-25] MEDS: TEFLARO 600 MG in NS 250 ML IV SCH ×2 (06:42→12:30)
[2018-07-25] MEDS: LINZESS PO SCH (06:48)
[2018-07-25] MEDS: SYNTHROID PO SCH (06:50)
[2018-07-25] MEDS: PROTONIX IV SCH (06:51)
[2018-07-25 07:20] LABS: BASO# 0.02 X1000 (0.0-0.2); BASO% 0.3 % (0.0-0.8); EOS# 0.22 X1000 (0.0-0.7); EOS% 3.8 % (0.0-10.0); HEMATOCRIT 25.7 % (37.0-47.0); HEMOGLOBIN 7.5 g/dL (12.0-16.0); LYMPH# 1.94 X1000 (1.2-3.4); LYMPH% 33.8 % (20.5-51.1); MCHC 29.2 g/dL (33-37); MCV 89.2 FL (81-99); MONO# 0.38 X1000 (0.11-0.59); MONO% 6.6 % (1.7-9.3); MPV 9.2 FL (7.4-10.4); NEUT# 3.18 X1000 (1.4-6.5); NEUT% 55.5 % (42.2-75.2); PLT 311 X1000 (130-400); RBC 2.88 XMIL (4.2-5.4); RDW 17.5 % (11.5-14.5); WBC 5.74 X1000 (4.8-10.8)
[2018-07-25 07:43] LABS: AGAP 8; ALBUMIN 2.7 g/dL (3.5-5.0); BUN 5 mg/dL (8-22); CALCIUM 8.5 mg/dL (8.8-10.2); CHLORIDE 107 mmol/L (98-107); COSMO 282; CREATININE 0.5 mg/dL (0.5-0.9); ESTIMATED GFR > 60; GLUCOSE 99 mg/dL (70-104); PHOSPHORUS 3.1 mg/dL (2.7-4.5); POTASSIUM 4.3 mmol/L (3.5-5.1); SODIUM 143 mmol/L (136-145); TCO2 28 mmol/L (25-35)
[2018-07-25] MEDS: NEURONTIN PO SCH ×3 (08:21→22:21)
[2018-07-25] MEDS: KLONOPIN PO SCH (08:21)
[2018-07-25] MEDS: HEPARIN SUBQ SCH ×2 (08:21→22:22)
[2018-07-25] MEDS: NICODERM PATCH TD SCH (08:21)
[2018-07-25] MEDS: ZANAFLEX PO SCH ×2 (08:22→22:21)
[2018-07-25] MEDS: COLACE PO SCH ×2 (08:22→22:22)
[2018-07-25] MEDS: MIRALAX PO SCH ×3 (08:22→22:23)
[2018-07-25] MEDS: CYMBALTA PO SCH (08:22)
[2018-07-25] MEDS: PRAVACHOL PO SCH (08:22)
[2018-07-25] MEDS: PERCOCET-10 PO PRN ×2 (08:41→17:54)
[2018-07-25 09:54] LABS: INR 0.87; PROTIME 12.6 Seconds (11.0-16.0)
[2018-07-25] MEDS ORDERED: NS 250 ML ONE (10:25)
[2018-07-25] MEDS: PLETAL PO SCH ×2 (12:01→22:21)
--- NOTE | 2018-07-25 14:57 | PROGRESS NOTE ---
DATE: 07/25/2018 INTERVAL HISTORY: Patient's dyspnea largely resolved. Blood pressure remained stable. CK continues to improve with intravenous hydration. The patient lost IV access this morning. Attempting to get a PICC line. No other acute events overnight. No new complaints. REVIEW OF SYSTEMS: Twelve point review of systems negative except as per interval history. LABS: WBC 5.7, hemoglobin 7.5, hematocrit 35.7, platelets 311,000. Basic metabolic profile unremarkable. VITALS: T-max 98.6 degrees, pulse 69, respirations 18, blood pressure 140/52, O2 saturation 100% on room air. PHYSICAL EXAMINATION: General: No acute distress. Vitals: As above. HEENT: Normocephalic, atraumatic. Moist mucous membranes. No cervical adenopathy. Cardiovascular: Regular rate and rhythm. No murmurs, rubs, or gallops. Pulmonary: Clear to auscultation bilaterally. No wheezing noted. No increased work of breathing or accessory muscle use. Abdomen: Soft, nontender, nondistended. Bowel sounds positive. Extremities: Peripheral pulses intact. No clubbing or cyanosis. Left lower leg laceration with significant bruising but no bleeding, drainage, or sign of infection. Neurologic: Cranial nerves grossly intact. No focal deficits identified. Psychiatric: Normal mood and affect. Awake, alert, oriented x3. Skin: Laceration as above. Otherwise, no new rashes or lesions identified. ASSESSMENT AND PLAN: 1. Shock, likely septic secondary to bilateral pneumonia but may also have had a hypovolemic component. Now resolved with antibiotics and intravenous fluids. Continue fluids one more day. The patient's symptoms are largely resolved at this point so may be able to transition to oral antibiotics and discharge home tomorrow. 2. Syncope, likely related to shock as above. 3. Acute kidney injury. Resolved with intravenous fluids and antibiotics. 4. Chronic pain. Continuing the patient's home [place]. Weaning intravenous narcotics. 5. Anxiety. Continue patient's home clonazepam of 0.5 mg daily. 6. Rhabdomyolysis. CK continues to improve with fluids. We will hydrate one more day and may be able to discharge tomorrow. 7. Tobacco abuse. Patient is given a nicotine patch and counseled on cessation.
[2018-07-25] MEDS: NS NEB INH SCH ×2 (15:14→21:25)
[2018-07-25] MEDS: MIRAPEX PO SCH (22:21)
[2018-07-26] MEDS: PERCOCET-10 PO PRN ×3 (00:11→12:38)
[2018-07-26] MEDS: TEFLARO 600 MG in NS 250 ML IV SCH ×2 (00:11→12:38)
[2018-07-26] MEDS: ZOFRAN IV PRN (00:11)
[2018-07-26] MEDS: NS NEB INH SCH ×2 (03:47→10:57)
[2018-07-26] MEDS: XOPENEX NEB INH SCH ×2 (03:47→10:57)
[2018-07-26] MEDS: ZOSYN 2.25 GM in NS 50 ML IV SCH ×2 (04:00→12:38)
[2018-07-26] MEDS: NS 1,000 ML IV SCH (05:22)
[2018-07-26] MEDS: PROTONIX IV SCH (06:37)
[2018-07-26] MEDS: SYNTHROID PO SCH (06:38)
[2018-07-26] MEDS: LINZESS PO SCH (06:38)
[2018-07-26 07:44] VITALS: BP 164/75
[2018-07-26 07:47] LABS: BASO# 0.02 X1000 (0.0-0.2); BASO% 0.3 % (0.0-0.8); EOS# 0.27 X1000 (0.0-0.7); EOS% 3.9 % (0.0-10.0); HEMATOCRIT 28.1 % (37.0-47.0); HEMOGLOBIN 8.2 g/dL (12.0-16.0); LYMPH# 1.36 X1000 (1.2-3.4); LYMPH% 19.7 % (20.5-51.1); MCH 26.1 PG (27-31); MCHC 29.2 g/dL (33-37); MCV 89.5 FL (81-99); MONO% 5.8 % (1.7-9.3); MPV 9.5 FL (7.4-10.4); NEUT# 4.84 X1000 (1.4-6.5); NEUT% 70.3 % (42.2-75.2); PLT 323 X1000 (130-400); RBC 3.14 XMIL (4.2-5.4); RDW 17.8 % (11.5-14.5); WBC 6.89 X1000 (4.8-10.8)
[2018-07-26 08:29] LABS: AGAP 11; ALBUMIN 3.1 g/dL (3.5-5.0); BUN 5 mg/dL (8-22); CALCIUM 8.7 mg/dL (8.8-10.2); CHLORIDE 105 mmol/L (98-107); COSMO 278; CREATININE 0.7 mg/dL (0.5-0.9); ESTIMATED GFR > 60; GLUCOSE 129 mg/dL (70-104); PHOSPHORUS 3.2 mg/dL (2.7-4.5); SODIUM 140 mmol/L (136-145); TCO2 24 mmol/L (25-35)
[2018-07-26] MEDS: COLACE PO SCH (10:07)
[2018-07-26] MEDS: NICODERM PATCH TD SCH (10:07)
[2018-07-26] MEDS: PLETAL PO SCH (10:07)
[2018-07-26] MEDS: MIRALAX PO SCH (10:07)
[2018-07-26] MEDS: PRAVACHOL PO SCH (10:07)
[2018-07-26] MEDS: ZANAFLEX PO SCH (10:08)
[2018-07-26] MEDS: NEURONTIN PO SCH (10:08)
[2018-07-26] MEDS: KLONOPIN PO SCH (10:08)
[2018-07-26] MEDS: CYMBALTA PO SCH (10:08)
[2018-07-26] MEDS: HEPARIN SUBQ SCH (10:08)
--- NOTE | 2018-07-27 11:09 | DISCHARGE SUMMARY ---
ADMISSION DATE: 07/22/2018 DISCHARGE DATE: 07/27/2018 PRIMARY CARE PHYSICIAN: Dr. Esau Garcia. ADMISSION DIAGNOSES: 1. Sepsis, severely hypotensive. 2. Pneumonia. 3. Syncope. 4. A left leg laceration sutured in the emergency room. 5. Acute kidney injury, likely secondary to volume depletion as well as possible sepsis. 6. Rhabdomyolysis. 7. Chronic obstructive pulmonary disease. 8. Constipation. 9. Gastroesophageal reflux disease. DISCHARGE DIAGNOSES: 1. Shock, likely septic secondary to bilateral pneumonia with a hypovolemia component, now resolved. 2. Syncope likely, related to shock as above, resolved. 3. Acute kidney injury, resolved. 4. Chronic pain. 5. Anxiety. 6. Rhabdomyolysis, resolved. 7. Tobacco abuse summary. SUMMARY OF FINDINGS: This is a 63-year-old female who presented to the ER with complaints of 2 syncopal episodes. States she has not been feeling well for the past 3 days. Reported a poor appetite, nausea, vomiting but no diarrhea. She had felt dizzy throughout the day and then passed out and the morning of arrival, she had a severe laceration on her left calf secondary to the syncopal episode. CT of the head and spine were done that revealed no evidence of hemorrhage or injury or acute fracture. CT of the abdomen and pelvis showed moderate constipation and a distended urinary bladder. She received 2 L of normal saline and the wound on her calf was sutured by the ER physician. She was admitted, started on antibiotics, broad spectrum. We did an echocardiogram on 07/23/2018 that showed an ejection fraction of 60 to 65 percent with a normal LV systolic function. We did a lumbar spine CT on 07/23/2018 that showed an impression of no evidence of acute bony disease, severe degenerative disk disease, scoliosis, facet arthropathy, and spinal and foraminal stenosis as described. Her rhabdomyolysis has resolved with fluid resuscitation. She has remained afebrile for greater than 24 hours. White blood cell count has remained normal and it is now felt that she can safely be discharged home. DISCHARGE MEDICATIONS: Ventolin 1 puff inhalation b.i.d., cilostazol 100 mg p.o. b.i.d., Klonopin 0.5 mg give 1 mg p.o. daily, doxycycline 100 mg p.o. b.i.d., #12 with no refills, duloxetine 60 mg p.o. daily, gabapentin 300 mg p.o. t.i.d., Synthroid 88 mcg p.o. daily, lisinopril 10 mg p.o. b.i.d., nicotine patch 21 mg transdermally daily, oxycodone 10 one p.o. q.6 hours p.r.n., pantoprazole 40 mg p.o. daily, Mirapex 0.25 mg p.o. at bedtime, pravastatin 40 mg p.o. daily, Phenergan 25 mg p.o. t.i.d. p.r.n., tizanidine 4 mg p.o. b.i.d. FOLLOWUP: She needs to follow up with her primary care physician, Dr. Esau Garcia, on 07/30/2018 at 9 a.m. in the morning. All discharge instructions have been reviewed with the patient and she verbalized understanding. lungs clear to auscultation at this point. TIME SPENT: A 35 minute discharge summary. Dictated by ROMANA Peoples for Yinka Grider MD cc: ROMANA Peoples MD Agree with above. the following is my own face to face assessment. patient with shock related to pneumonia and hypovolemia which improved with IVF and antibiotics. now essentially baseline. continue short course of doxy to finish treatment of her pneumonia. [facility]
== END 2018-07-26 13:59 | disposition home or self-care (01) | DRG 871 ==
LOC: ED 12:56 → EDIPHOLD 18:25 → SUATTDRO 18:25 → 3N 07-24 05:45
PROVIDERS: ATTEND Internal Medicine
CPT/HCPCS: 36569; 51701; 51702; 70450; 71010; 71045; 71250; 72125; 72131; 74176; 80053; 80069; 80076; 80101; 80301; 80307; 80324; 80345; 80346; 80353; 80358; 80361; 80365; 81001; 82533; 82550; 82553; 82570; 82805; 83036; 83690; 83880; 83935; 83992; 84100; 84156; 84300; 84439; 84443; 84484; 85025; 85610; 85730; 87040; 87070; 87205; 87275; 87276; 87804; 90471; 90714; 93005; 93306; 94640; 94761; 96372; 96374; 96375; 96376; 99285; A9270; C9113; G0431; G0434; G0479; G0480; J0712; J1170; J1644; J2020; J2405; J2543; J7030; J7050; P9612; S0164